=== PATIENT | male | born 1975 | race Two or more races ===

== ENCOUNTER 2020-09-24 04:48 | Inpatient (IN) | payer BC ==
[~2020-09-24] VITALS: Ht 172.7 cm; Wt 104.3 kg
[2020-09-24] MEDS ORDERED: KETOROLAC 30MG/ML VIAL IV STA (05:12)
[2020-09-24] MEDS ORDERED: ONDANSETRON HCL 4MG/2ML INJ IV STA (05:12)
[2020-09-24] MEDS ORDERED: SODIUM CHLORIDE 0.9% 1,000 ML IV ONE (05:15)
[2020-09-24] MEDS ORDERED: PIPERACILLIN SODIUM/TAZOBACTAM 4.5 G in DEXT 5% WATER 100 ML IV SCH (05:45)
[2020-09-24 05:51] LABS: HEMATOCRIT. 45.4 % (42.0-52.0); HEMOGLOBIN. 15.5 g/dL (14.0-18.0); MEAN CORPUSCULAR HEMOGLOBIN 31.3 pg (28.0-32.0); MEAN CORPUSCULAR VOLUME 91.7 fL (80.0-94.0); PLATELET 313 x1000/uL (130-400); RED BLOOD CELL COUNT 4.95 mill/uL (4.7-6.1); RED CELL DISTRIBUTION WIDTH 12.7 % (11.6-14.6)
[2020-09-24 05:54] LABS: *AMPHETAMINES SCREEN URINE NEGATIVE (NEGATIVE); *BARBITURATES SCREEN URINE NEGATIVE (NEGATIVE); *BENZODIAZEPINES SCREEN URINE NEGATIVE (NEGATIVE); *COCAINE SCREEN URINE NEGATIVE (NEGATIVE)
[2020-09-24 05:55] LABS: CANNABINOID URINE SCREEN PRESUMTIVE POSITIVE (NEGATIVE); METHADONE URINE SCREEN NEGATIVE (NEGATIVE); OPIATES URINE SCREEN NEGATIVE (NEGATIVE); PHENCYCLIDINE URINE SCREEN NEGATIVE (NEGATIVE)
[2020-09-24 06:00] LABS: CHLORIDE 100 mEq/L (98-107)
[2020-09-24 06:04] LABS: ETHANOL BLOOD < 10 mg/dL
[2020-09-24 07:21] LABS: PLATELET ESTIMATE NORMAL
[2020-09-24] MEDS ORDERED: SKIN ADHESIVE 0.7 GM EA TOP ONE (09:00)
[2020-09-24] MEDS ORDERED: BUPIVACAINE HCL 0.5% (5MG/ML) 50ML ONE (09:01)
[2020-09-24 10:00] VITALS: BP 110/58
[2020-09-24] MEDS ORDERED: PROPOFOL 200MG/20ML VIAL IV ONE (10:42)
[2020-09-24] MEDS ORDERED: NEOSTIGMINE METHYLSULFATE 1MG/ML 10 ML VIAL ONE (10:42)
[2020-09-24] MEDS ORDERED: MIDAZOLAM HCL 2 MG/2 ML VIAL ONE (10:42)
[2020-09-24] MEDS ORDERED: ROCURONIUM BROMIDE 10MG/ML VIAL 5ML IV ONE (10:42)
[2020-09-24] MEDS ORDERED: FENTANYL CITRATE/PF 50MCG/ML 2ML VIAL ONE (10:42)
[2020-09-24] MEDS ORDERED: GLYCOPYRROLATE 0.2 MG/ML 2ML VIAL ONE (10:43)
[2020-09-24] MEDS ORDERED: ONDANSETRON HCL 4MG/2ML INJ ONE (10:43)
[2020-09-24] MEDS ORDERED: DEXAMETHASONE 4MG/ML 1ML VIAL ONE (10:43)
[2020-09-24] MEDS ORDERED: DEXTROSE 50% WATER 50ML SYRINGE IV PRN (11:00)
[2020-09-24] MEDS ORDERED: KETOROLAC 30MG/ML VIAL IV PRN (11:00)
[2020-09-24] MEDS ORDERED: ONDANSETRON HCL 4MG/2ML INJ IV PRN ×3 (11:00→11:30)
[2020-09-24] MEDS ORDERED: SODIUM CHLORIDE 0.9% 1,000 ML IV SCH (11:00)
[2020-09-24] MEDS ORDERED: DIPHENHYDRAMINE 50MG/ML VIAL IV PRN (11:00)
[2020-09-24] MEDS ORDERED: MORPHINE SULFATE 4 MG/ML CPJ (NOT FOR IM USE) IV PRN ×2 (11:00→11:30)
[2020-09-24] MEDS ORDERED: PIPERACILLIN/TAZ 3.375G PREMIX 50 ML IV SCH (11:00)
[2020-09-24] MEDS ORDERED: ATOR20TA65 PO (11:07)
[2020-09-24] MEDS ORDERED: LISI20TA31 PO (11:07)
[2020-09-24] MEDS ORDERED: AMLO10TA80 PO (11:07)
[2020-09-24] MEDS ORDERED: METF-416 PO (11:07)
[2020-09-24] MEDS ORDERED: SEMA7TAB (11:07)
[2020-09-24] MEDS ORDERED: HYDROMORPHONE HCL/PF 2MG/ML CPJ IV PRN (11:30)
[2020-09-24] MEDS ORDERED: LABETALOL 5MG/ML SYR 20 MG/4 ML SYRINGE IV PRN (11:30)
[2020-09-24] MEDS ORDERED: MORPHINE SULFATE 2 MG/ML CPJ (NOT FOR IM USE) IV PRN (11:30)
[2020-09-24] MEDS ORDERED: HYDROCODONE/ACETAMINOPHEN 5/325MG TABLET PO PRN ×2 (11:30)
[2020-09-24] MEDS ORDERED: MEPERIDINE HCL/PF 25MG/ML CPJ IV PRN (11:30)
[2020-09-24] MEDS: BLOOD SUGAR DIAGNOSTIC STRIP TEST SCH ×3 (13:59→21:00)
[2020-09-24] MEDS: DEXT 5%/0.45% NACL KCL 20MEQ/L 1,000 ML IV SCH (14:02)
[2020-09-24] MEDS: PIPERACILLIN/TAZOBACTAM 3.375 G in DEXT 5% WATER 100 ML IV SCH ×2 (14:02→22:09)
[2020-09-24 16:00] VITALS: BP 133/63
[2020-09-24] MEDS: INSULIN LISPRO 100 UNITS/ML SUBCUT SCH ×2 (18:31→21:50)
[2020-09-24] MEDS ORDERED: CLONIDINE 0.1MG TABLET PO PRN (19:45)
[2020-09-24 20:00] VITALS: BP 122/79
[2020-09-24] MEDS: FAMOTIDINE 20MG/2ML VIAL IV SCH (22:08)
[2020-09-25] VITALS: BP 118/52
[2020-09-25] MEDS: PIPERACILLIN/TAZOBACTAM 3.375 G in DEXT 5% WATER 100 ML IV SCH ×2 (02:19→09:25)
[2020-09-25 04:00] VITALS: BP 121/60
[2020-09-25] MEDS: DEXT 5%/0.45% NACL KCL 20MEQ/L 1,000 ML IV SCH (06:17)
[2020-09-25] MEDS: BLOOD SUGAR DIAGNOSTIC STRIP TEST SCH ×2 (07:20→12:50)
[2020-09-25 08:00] VITALS: BP 128/68
[2020-09-25] MEDS: FAMOTIDINE 20MG/2ML VIAL IV SCH (09:26)
[2020-09-25] MEDS: INSULIN LISPRO 100 UNITS/ML SUBCUT SCH ×2 (10:11→12:55)
[2020-09-25 12:00] VITALS: BP 118/78
[2020-09-25 14:21] VITALS: BP 118/78
== END 2020-09-25 14:50 | disposition home or self-care (01) | DRG 342 ==
LOC: ER 05:48 → 6EST 05:54 → EDBEDREQ 06:26 → EDBEDREQTM 06:26 → CANRESERV 08:09 → ENRESERV 08:09
PROVIDERS: ADMIT Internal Medicine; ATTEND Internal Medicine
PROC: 0DTJ4ZZ Resection of Appendix, Percutaneous Endoscopic Approach (ICD-10-PCS; principal; 2020-09-24)
DX: K35.80 Unspecified acute appendicitis (principal); R65.10 Systemic inflammatory response syndrome (SIRS) of non-infectious origin without acute organ dysfunction; Z20.822 Contact with and (suspected) exposure to COVID-19; E11.9 Type 2 diabetes mellitus without complications; E66.01 Morbid (severe) obesity due to excess calories; I10 Essential (primary) hypertension; K76.0 Fatty (change of) liver, not elsewhere classified; N20.0 Calculus of kidney; Z68.35 Body mass index [BMI] 35.0-35.9, adult
CPT/HCPCS: 36415; 74176; 80053; 80305; 80320; 82962; 83036; 85025; 87426; 88304; 93005; 99285; J1100; J1815; J1885; J2250; J2405; J2543; J2704; J2710; J3010; J3490; J7030; J7060; G0480